=== PATIENT | male | born 1995 | race Caucasian/White ===

== ENCOUNTER 2018-12-29 07:57 | Day surgery (SDC) | payer OTHER ==
[~2018-12-29] VITALS: Ht 185.4 cm; Wt 125.0 kg
[~2018-12-29 07:57] MED LIST: AMOX875 PO; CLIN300; CLIN300 IV; Cleocin HCl300 MG PO; HYDR1TAB94 PO; IBUP800 PO
[2018-12-29] MEDS ORDERED: MONT10T (08:34)
[2018-12-29] MEDS ORDERED: CETI5 (08:35)
[2018-12-29] MEDS ORDERED: Flonase 0.05% N16 GM (08:35)
--- NOTE | 2018-12-29 08:40 | NUR ---
12/29/18 0840 Cally Campbell 1 IV MISS IN RH BY [facility] VALVE 1 MISSED IV IN RW BY VALVE 1 GOOD IV IN RFA BY [facility] PT TOW
== END 2018-12-29 09:53 | disposition home or self-care (01) ==
LOC: ORSCSDS 07:57
PROVIDERS: Student in an Organized Health Care Education/Training Program
PROC: 0DB98ZX Excision of Duodenum, Via Natural or Artificial Opening Endoscopic, Diagnostic (ICD-10-PCS; principal; 2018-12-29 09:15)
PROC: 0DB68ZX Excision of Stomach, Via Natural or Artificial Opening Endoscopic, Diagnostic (ICD-10-PCS; principal; 2018-12-29 09:15)
DX: R11.2 Nausea with vomiting, unspecified (principal); R10.11 Right upper quadrant pain; K25.9 Gastric ulcer, unspecified as acute or chronic, without hemorrhage or perforation; K44.9 Diaphragmatic hernia without obstruction or gangrene; I10 Essential (primary) hypertension; R56.9 Unspecified convulsions; Z79.899 Other long term (current) drug therapy
CPT/HCPCS: 88305; 88342; J2405; J2704; J7120